=== PATIENT | female | born 1975 | race Caucasian/White ===

== ENCOUNTER 2017-02-14 17:57 | Emergency (ER) | payer BC ==
[~2017-02-14] VITALS: Ht 167.6 cm; Wt 52.3 kg
[~2017-02-14 17:57] MED LIST: ALEVE 220MG220 MG PO; AMITRIPTYLINE H75 M1 PO; AMOXICILLIN 50500 MG PO; CARAFATE 1GM1 G PO; CATAPRES 0.1MG0.1 MG PO; CEPHALEXIN500 M1 PO; CLEOCIN HC150 MG/CAP PO; CLEOCIN HCL75 MG; COLACE 100100 MG/CAP PO; DIFLUCAN 100MG100 MG PO; DILAUDID 2MG TAB2 MG PO; FENTANYL 50MCG TD; FIORICET 325 MG1 TA1 PO; FLAGYL500 MG PO; FLEXERIL 1010 MG/TAB PO; INDERAL 10MG10 MG PO; LORTAB ELIX0.5 MG/ML PO; MARINOL5 MG PO; MIRALAX 255 GM255 GM PO; MOTRIN 800800 MG/TAB PO; NAPROSYN500 MG PO; NEURONTIN400 MG/CAP PO; NEXIUM 20MG20 MG; NORCO 325 MG-101 TAB PO; NORCO 325 MG-51 TAB PO; NORCO 325 MG-7.1 TAB PO; OXYCONTIN 10MG10 MG PO; PEPCID 20MG TAB20 MG PO; PERCOCET 325 MG1 TA2 PO; PHENERGAN 25 TA25 MG; PHENERGAN 25 TA25 MG PO; PREDNISONE1 MG PO; PREMARIN 1.251.25 MG PO; PRILOSEC10 MG PO; PROMETHAZINE H118 ML PO; ROXICODONE 55 MG/TAB PO; TAMIFLU 75MG75 MG PO; ULTRAM 50MG TAB50 MG PO; XANAX 0.5MG0.5 MG PO; ZOFRAN 4MG T4 MG/TAB PO
[2017-02-14 18:00] VITALS: BP 157/75; PULSE 111; TEMP 98.6
[2017-02-14] MEDS ORDERED: NEURONTIN600 MG/TAB PO (18:03)
[2017-02-14] MEDS ORDERED: CEPHALEXIN500 M1 PO (18:45)
== END 2017-02-14 19:03 | disposition home or self-care (01) ==
LOC: COL.ER 17:57
DX: K08.89 Other specified disorders of teeth and supporting structures (principal); F17.210 Nicotine dependence, cigarettes, uncomplicated

== ENCOUNTER 2018-09-13 18:46 | Emergency (ER) | payer BC ==
[~2018-09-13] VITALS: Ht 167.6 cm; Wt 45.5 kg
[~2018-09-13 18:46] MED LIST changes: +NEURONTIN600 MG/TAB PO
[2018-09-13 18:50] VITALS: BP 146/68; TEMP 98.4
[2018-09-13] MEDS ORDERED: ZITHROMAX Z PA250 MG PO (19:58)
[2018-09-13 20:30] VITALS: PULSE 82
== END 2018-09-13 20:30 | disposition home or self-care (01) ==
LOC: COL.ER 18:46
DX: J20.9 Acute bronchitis, unspecified (principal); M26.629 Arthralgia of temporomandibular joint, unspecified side; G89.29 Other chronic pain; F17.210 Nicotine dependence, cigarettes, uncomplicated; Z79.891 Long term (current) use of opiate analgesic

== ENCOUNTER 2019-03-28 14:36 | Emergency (ER) | payer BC ==
[~2019-03-28] VITALS: Ht 167.6 cm; Wt 50.0 kg
[~2019-03-28 14:36] MED LIST changes: +ZITHROMAX Z PA250 MG PO
[2019-03-28 14:46] VITALS: TEMP 99
[2019-03-28 16:48] LABS: STREP SCREEN NEGATIVE
[2019-03-28] MEDS ORDERED: ZITHROMAX500 M2 PO (17:56)
[2019-03-28 18:33] VITALS: BP 119/66; PULSE 87
== END 2019-03-28 18:34 | disposition home or self-care (01) ==
LOC: COL.ER 14:36
PROVIDERS: Emergency Medicine
DX: J02.9 Acute pharyngitis, unspecified (principal); M26.609 Unspecified temporomandibular joint disorder, unspecified side; J06.9 Acute upper respiratory infection, unspecified; F17.210 Nicotine dependence, cigarettes, uncomplicated; Z90.710 Acquired absence of both cervix and uterus
CPT/HCPCS: J2270

== ENCOUNTER 2019-04-27 22:58 | Emergency (ER) | payer BC ==
[~2019-04-27] VITALS: Ht 167.6 cm; Wt 50.0 kg
[~2019-04-27 22:58] MED LIST changes: +ZITHROMAX500 M2 PO
[2019-04-27 23:01] VITALS: TEMP 97.3
[2019-04-27 23:51] LABS: COLLECTION METHOD CLEAN CATCH
[2019-04-27 23:56] LABS: BASO % 0.3 % (0.0-2.0); EOS % 0.5 % (0-4.0); GRAN # 3.5 (1.4-6.5); GRAN % 57.1 % (42.2-75.2); HEMATOCRIT 40.3 % (37.0-47.0); HEMOGLOBIN 13.6 g/dl (12.5-16.0); LYMPH # 2.2 (1.2-3.4); LYMPH % 36.5 % (20.0-51.0); MEAN CELL VOLUME 94 fl (80.0-100.0); MEAN CORPUSCULAR HEMOGLOBIN 32 pg (27.0-31.0); MEAN CORPUSCULAR HGB CONC 34 g/dl (33.0-37.0); MEAN PLATELET VOLUME 10.7 fl (7.4-10.4); MONO # 0.3 (0.1-0.6); MONO % 5.4 % (1.7-9.3); PLATELET COUNT 235 K/mm3 (130-400); REDCELL DISTRIBUTION WIDTH-CV 12.2 % (11.5-14.5)
[2019-04-27 23:59] LABS: MUCOUS Present /lpf; PH 6 (5-8); URINE APPEARANCE Hazy; URINE BACTERIA None Seen /hpf; URINE BILIRUBIN Negative (NEGATIVE); URINE BLOOD Negative (NEGATIVE); URINE COLOR Yellow; URINE GLUCOSE Negative (NEGATIVE); URINE KETONE Negative (NEGATIVE); URINE LEUKOCYTE ESTERASE 2+ (NEGATIVE); URINE NITRATE Negative (NEGATIVE); URINE PROTEIN(semi-quant) Negative (NEGATIVE); URINE RBC 0-2 /hpf; URINE UROBILINOGEN Negative (NEGATIVE)
[2019-04-28 00:05] LABS: ALBUMIN 4.2 gm/dL (3.5-5.0); BILIRUBIN,TOTAL 0.2 mg/dL (0.0-1.0); CALCIUM 9.5 mg/dL (8.4-10.2); CREATININE, serum 0.56 (0.52-1.25); POTASSIUM 3.6 mmol/L (3.4-5.0); TOTAL PROTEIN 7.2 gm/dL (6.4-8.2)
[2019-04-28] MEDS ORDERED: ZOFRAN 4MG T4 MG/TAB PO (03:00)
[2019-04-28] MEDS ORDERED: BENTYL 20MG20 MG/TAB PO (03:00)
[2019-04-28 03:09] VITALS: BP 143/64; PULSE 80
== END 2019-04-28 03:12 | disposition home or self-care (01) ==
LOC: COL.ER 22:58
PROVIDERS: Emergency Medicine
DX: R11.2 Nausea with vomiting, unspecified (principal); R10.9 Unspecified abdominal pain; Z90.49 Acquired absence of other specified parts of digestive tract; Z90.89 Acquired absence of other organs; Z90.710 Acquired absence of both cervix and uterus; F17.210 Nicotine dependence, cigarettes, uncomplicated
CPT/HCPCS: J2270; J2405; J7030; Q9967

== ENCOUNTER 2019-04-30 22:24 | Emergency (ER) | payer BC ==
[~2019-04-30] VITALS: Ht 167.6 cm; Wt 50.0 kg
[~2019-04-30 22:24] MED LIST changes: +BENTYL 20MG20 MG/TAB PO
[2019-04-30 22:28] VITALS: TEMP 98.7
[2019-04-30 23:24] LABS: COLLECTION METHOD CLEAN CATCH
[2019-04-30 23:27] LABS: BASO % 0.5 % (0.0-2.0); EOS % 0.5 % (0-4.0); GRAN % 62.1 % (42.2-75.2); HEMATOCRIT 39.9 % (37.0-47.0); HEMOGLOBIN 13.6 g/dl (12.5-16.0); MEAN CELL VOLUME 93 fl (80.0-100.0); MEAN CORPUSCULAR HEMOGLOBIN 32 pg (27.0-31.0); MEAN CORPUSCULAR HGB CONC 34 g/dl (33.0-37.0); MEAN PLATELET VOLUME 11.2 fl (7.4-10.4); MONO # 0.4 (0.1-0.6); MONO % 5.7 % (1.7-9.3); PLATELET COUNT 234 K/mm3 (130-400); RED BLOOD COUNT 4.31 M/mm3 (4.10-5.30)
[2019-04-30 23:31] LABS: AMORPHOUS CRYSTAL Present /uL; MUCOUS Present /lpf; PH 8 (5-8); SQUAMOUS EPITHELIAL 0-2 /hpf; URINE APPEARANCE Cloudy; URINE BACTERIA None Seen /hpf; URINE BILIRUBIN Negative (NEGATIVE); URINE BLOOD Negative (NEGATIVE); URINE COLOR Yellow; URINE GLUCOSE Negative (NEGATIVE); URINE KETONE Negative (NEGATIVE); URINE LEUKOCYTE ESTERASE 1+ (NEGATIVE); URINE NITRATE Negative (NEGATIVE); URINE PROTEIN(semi-quant) Negative (NEGATIVE); URINE UROBILINOGEN Negative (NEGATIVE)
[2019-04-30 23:39] LABS: BILIRUBIN,TOTAL 0.3 mg/dL (0.0-1.0); CALCIUM 9.3 mg/dL (8.4-10.2); CREATININE, serum 0.46 (0.52-1.25); POTASSIUM 3.7 mmol/L (3.4-5.0); TOTAL PROTEIN 6.9 gm/dL (6.4-8.2)
[2019-05-01] MEDS ORDERED: MACROBID 1100 MG/CAP PO (00:10)
[2019-05-01 00:40] VITALS: BP 112/74; PULSE 73
== END 2019-05-01 00:40 | disposition home or self-care (01) ==
LOC: COL.ER 22:24
PROVIDERS: Emergency Medicine
DX: N39.0 Urinary tract infection, site not specified (principal); R11.2 Nausea with vomiting, unspecified; R19.8 Other specified symptoms and signs involving the digestive system and abdomen
CPT/HCPCS: J1200; J1630; J7030

== ENCOUNTER 2019-10-27 03:22 | Emergency (ER) | payer BC ==
[~2019-10-27] VITALS: Ht 167.6 cm; Wt 50.0 kg
[~2019-10-27 03:22] MED LIST changes: +MACROBID 1100 MG/CAP PO
[2019-10-27 05:36] VITALS: BP 116/86; PULSE 68; TEMP 98.1
== END 2019-10-27 05:37 | disposition home or self-care (01) ==
LOC: COL.ER 03:22
DX: S42.291A Other displaced fracture of upper end of right humerus, initial encounter for closed fracture (principal); W10.9XXA Fall (on) (from) unspecified stairs and steps, initial encounter
CPT/HCPCS: J3010

== ENCOUNTER 2019-11-22 15:58 | Emergency (ER) | payer BC ==
[~2019-11-22] VITALS: Ht 167.6 cm; Wt 47.3 kg
[2019-11-22 16:02] VITALS: BP 143/69; TEMP 99
[2019-11-22] MEDS ORDERED: FLEXERIL 1010 MG/TAB PO (16:55)
[2019-11-22 17:09] VITALS: PULSE 89
== END 2019-11-22 17:10 | disposition home or self-care (01) ==
LOC: COL.ER 15:58
DX: M25.512 Pain in left shoulder (principal); G89.29 Other chronic pain; F17.210 Nicotine dependence, cigarettes, uncomplicated
CPT/HCPCS: J3010

== ENCOUNTER 2020-01-29 21:01 | Emergency (ER) | payer BC ==
[~2020-01-29] VITALS: Ht 167.6 cm; Wt 48.6 kg
[2020-01-29 22:06] VITALS: BP 131/74; PULSE 89; TEMP 98
== END 2020-01-29 22:06 | disposition home or self-care (01) ==
LOC: COL.ER 21:01
DX: B34.9 Viral infection, unspecified (principal); Z20.818 Contact with and (suspected) exposure to other bacterial communicable diseases

== ENCOUNTER 2021-05-06 05:19 | Emergency (ER) | payer BC ==
[~2021-05-06] VITALS: Ht 167.6 cm; Wt 52.3 kg
[2021-05-06 05:34] VITALS: TEMP 98.1
[2021-05-06] MEDS ORDERED: LIDODERM 5% PATC1 EA TP (06:39)
[2021-05-06] MEDS ORDERED: FLEXERIL 1010 MG/TAB PO (06:39)
[2021-05-06 06:46] LABS: COLLECTION METHOD CLEAN CATCH
[2021-05-06 06:54] LABS: MUCOUS Present /lpf; PH 5 (5-8); SQUAMOUS EPITHELIAL 0-2 /hpf; URINE APPEARANCE Hazy; URINE BACTERIA None Seen /hpf; URINE BILIRUBIN Negative (NEGATIVE); URINE BLOOD 1+ (NEGATIVE); URINE COLOR Yellow; URINE GLUCOSE Negative (NEGATIVE); URINE KETONE Negative (NEGATIVE); URINE LEUKOCYTE ESTERASE Trace (NEGATIVE); URINE NITRATE Negative (NEGATIVE); URINE PROTEIN(semi-quant) Negative (NEGATIVE); URINE UROBILINOGEN Negative (NEGATIVE)
[2021-05-06 07:05] VITALS: BP 130/65; PULSE 82
== END 2021-05-06 07:05 | disposition home or self-care (01) ==
LOC: COL.ER 05:19
PROVIDERS: Emergency Medicine
DX: S39.012A Strain of muscle, fascia and tendon of lower back, initial encounter (principal); M54.42 Lumbago with sciatica, left side; Z88.6 Allergy status to analgesic agent; Z87.891 Personal history of nicotine dependence; X50.0XXA Overexertion from strenuous movement or load, initial encounter
CPT/HCPCS: J1885

== ENCOUNTER 2021-07-05 15:01 | Emergency (ER) | payer BC ==
[~2021-07-05] VITALS: Ht 167.6 cm; Wt 52.3 kg
[~2021-07-05 15:01] MED LIST changes: +LIDODERM 5% PATC1 EA TP
[2021-07-05 16:45] VITALS: BP 136/64; PULSE 88; TEMP 98.1
== END 2021-07-05 16:50 | disposition home or self-care (01) ==
LOC: COL.ER 15:01
DX: G89.29 Other chronic pain (principal); M54.5 Low back pain; R00.0 Tachycardia, unspecified; Z90.710 Acquired absence of both cervix and uterus; Z90.49 Acquired absence of other specified parts of digestive tract; Z90.721 Acquired absence of ovaries, unilateral; Z88.6 Allergy status to analgesic agent; Z79.891 Long term (current) use of opiate analgesic
CPT/HCPCS: J1200; J1885